=== PATIENT | male | born 1935 | race Caucasian/White ===

== ENCOUNTER 2022-03-01 10:59 | Emergency (ER) | payer MEDICARE, BC, SELFPAY ==
[2022-03-01 11:14] VITALS: BP 123/69; PULSE 66; RESP 14; TEMP 36.6; O2SAT 96; BMI 27.2
--- NOTE | 2022-03-01 12:47 | CT_ITS ---
WS: [id number] CT ABDOMEN AND PELVIS NONCONTRAST HISTORY: Abdominal pain TECHNIQUE: Imaging performed through the abdomen and pelvis. Coronal and sagittal reformats are submi tted. All CT scans at [facility] use at least one of these dose optimization techniques: auto mated exposure control; mA and/or kV adjustment per patient size (includes targeted exams where dose is matched to clinical indication); or iterative reconstruction. DLP: 2471.7 mGy.cm COMPARISON: None available. Lower thorax: Motion artifact at the lung bases. Liver: Normal size liver. No mass or bile duct dilatation. Gallbladder: Normally distended gallbladder with multiple stones. No evidence for acute cholecystitis or bile duct dilatation. Pancreas: Normal size and attenuation. Normal pancreatic duct. No pancreatitis or mass. Spleen: Normal spleen with granulomata. Adrenal glands: Normal. No mass. Right kidney: Mild atrophy and perinephric stranding with no obstruction. Nonobstructing 4 mm calcifi cation. Left kidney: Cortical calcification upper pole. Mild atrophy and perinephric stranding. No obstructio n. Aorta: Ectatic aorta with heavy calcification. 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 No free fluid, intraperitoneal air or significant lymphadenopathy. GI tract: Normally distended stomach. No small bowel obstruction. The appendix is normal. Patient has a large RIGHT inguinal hernia. There is omental fat, colon and small bowel extending into the hernia . The hernia sac is greater than 10 cm in length. There is some twisting of the fatty mesentery withi n the hernia sac. No obstruction. Patient is at risk for developing an obstruction. Numerous divertic venice throughout the distal colon predominantly. No evidence for acute diverticulitis. Abdominal wall: Ventral abdominal wall is negative. Pelvis: No free fluid in the pelvis. Urinary bladder is well distended. There is mild deviation of th e urinary bladder to the LEFT of midline due to the large RIGHT inguinal hernia. Osseous structures: Increase in the lumbar lordosis. CT/CT abdomen pelvis wo con [id number] IMPRESSION: 1. Very large RIGHT inguinal hernia. Hernia contains omental fat with proximal colon and small bowel extending into the sac with mild twisting. No obstructio n at this time. 2. Extensive diverticulosis greatest throughout the distal colon without evide nce for acute diverticulitis. 3. Cholelithiasis. 4. Moderate atherosclerosis aorta.
--- NOTE | 2022-03-01 13:11 | ED_ITS ---
HPI - GI Bleed General: Chief complaint: GI Bleed Stated complaint: bloody stool/diarrhea Time Seen by Provider: 03/01/22 12:47 Source: patient Mode of arrival: ambulatory Limitations: no limitations History of Present Illness: 86-year-old male presents emergency room with complaint of several episodes of bloody diarrhea yesterday no fever sweats chills he denies abdominal pain or chest pain he is not on any anticoagulants but does take aspirin daily he has not previously had episodes like this and has never had a colonoscopy has not had any further hematochezia today. No vomiting no diarrhea no fever sweats or chills denies dysuria urgency frequency or hematuria complaint: gross hematochezia Onset (ago): day(s) (1) Severity: mild Relieving factors: none Exacerbating factors: none Associated symptoms: Denies abdominal pain, chills, easy bruising, epistaxis, fever(s), headache(s), malaise, nausea, other bleeding, poor appetite, rash, syncope, vomiting or weakness Treatments Prior to Arrival: none Review of Systems Const: Denies: fever(s), chills, fatigue or malaise ENMT: Denies: epistaxis Card: Denies: syncope Resp: Denies: dyspnea, productive cough or non-productive cough GI: Denies: abdominal pain, nausea or vomiting : Denies: flank pain, difficulty urinating, dysuria, urinary frequency, urinary urgency or hematuria Musc: Denies: neck pain or back pain Skin/Breast: Denies: rash or pruritus Neuro: Denies: headache(s) Adrian/Lymph: Denies: easy bruising PFS ED PFSH: Medical History (Updated 03/01/22 @ 15:32 by Wm Morse DO) Hypertension Inguinal hernia Social History Smoking and tobacco status: never smoked Physical Exam Const: GENERAL APPEARANCE: cooperative and comfortable ORIENTATION/CONSCIOUSNESS: Yes awake, Yes oriented to person, Yes oriented to place and Yes oriented to time HENMT: COMMON NORMALS: normocephalic and atraumatic HEAD & SCALP: normocephalic and atraumatic Neck/C-Spine: COMMON NORMALS: no JVD Resp: COMMON NORMALS: normal respiratory effort, No retractions, No use of accessory muscles and clear to auscultation bilaterally AUSCULTATION: clear to auscultation bilaterally Cardio: COMMON NORMALS: no JVD, regular rate, regular rhythm and No murmurs present (Cardio) RATE: regular rate RHYTHM: regular rhythm GI: COMMON NORMALS: Soft to palpation and No hepatosplenomegaly present AUSCULTATION: Yes normoactive bowel sounds PALPATION: Yes Soft to palpation, No Tenderness to palpation present (GI), No Guarding due to palpation present (GI) and Yes No hepatosplenomegaly present Extremity: COMMON NORMALS: normal to inspection, capillary refill normal, no clubbing, cyanosis or edema, no calf tenderness and no pedal edema Neuro: SENSORIUM/ORIENTATION: Yes oriented to person, Yes oriented to place and Yes oriented to time Skin: COMMON NORMALS: no rashes or lesions noted GENERAL SKIN EXAM: no rashes or lesions noted Course Vital Signs: Vital signs: Vital Signs Temperature 97.8 F 03/01/22 11:14 Pulse Rate 57 L 03/01/22 13:20 Respiratory Rate 33 H 03/01/22 13:20 Blood Pressure 103/75 03/01/22 13:20 Pulse Oximetry 97 03/01/22 13:20 MDM - GI Bleed Medical Decision Making Large inguinal hernia with bowel incarcerated but is not strangulated on exam consistent with is not reducible. Strongly recommend he proceed with surgery and concern at this become strangulated could potentially become life- threatening at his age. For now his hemoglobin is stable I think we can discharge the patient with Cipro and Flagyl we will have him stop the Zithromax for now. The Cipro should cover respiratory concerns. Follow-up with general surgery for evaluation of the hernia as well as the rectal bleeding. Medical Records I reviewed the patient's medical records. Lab Data I reviewed the patient's lab results. : 03/01/22 13:20 03/01/22 13:20 Radiology Impressions Abdomen/Pelvis CT 03/01/22 12:47 IMPRESSION: 1. Very large RIGHT inguinal hernia. Hernia contains omental fat with proximal colon and small bowel extending into the sac with mild twisting. No obstruction at this time. 2. Extensive diverticulosis greatest throughout the distal colon without evidence for acute diverticulitis. 3. Cholelithiasis. 4. Moderate atherosclerosis aorta. Laboratory Results WBC 5.4 10^3/uL (4.0-10.0) 03/01/22 13:20 RBC 3.73 10^6/uL (4.1-5.3) L 03/01/22 13:20 Hgb 11.9 g/dL (11.7-16.6) 03/01/22 13:20 Hct 34.7 % (42.0-52.0) L 03/01/22 13:20 MCV 93.0 fl (80-94) 03/01/22 13:20 MCH 31.9 pg (28.0-34.0) 03/01/22 13:20 MCHC 34.3 g/dL (30.0-36.0) 03/01/22 13:20 RDW 12.6 % (12.1-15.1) 03/01/22 13:20 Plt Count 132 10^3/cmm (130-400) 03/01/22 13:20 MPV 11.2 fL (7.4-10.4) H 03/01/22 13:20 Neut % (Auto) 57.5 % 03/01/22 13:20 Lymph % (Auto) 23.3 % 03/01/22 13:20 [place] % (Auto) 16.0 % 03/01/22 13:20 Eos % (Auto) 1.9 % 03/01/22 13:20 Baso % (Auto) 0.4 % 03/01/22 13:20 Neut # (Auto) 3.09 10^3/uL (1.8-7.7) 03/01/22 13:20 Lymph # (Auto) 1.3 10^3/uL (0.8-4.8) 03/01/22 13:20 [place] # (Auto) 0.9 10^3/uL (0.2-0.9) 03/01/22 13:20 Eos # (Auto) 0.1 10^3/uL (0.0-0.8) 03/01/22 13:20 Baso # (Auto) 0.0 10^3/uL (0.0-0.1) 03/01/22 13:20 Nucleated RBC % (auto) 0 % 03/01/22 13:20 Nucleated RBCs # 0.0 /100WBC 03/01/22 13:20 PT 14.50 SECONDS (12.1-14.9) 03/01/22 13:20 INR 1.10 (0.8-1.2) 03/01/22 13:20 APTT 50.6 SECONDS (23.9-36.7) H 03/01/22 13:20 Sodium 137 mmol/L (136-145) 03/01/22 13:20 Potassium 4.4 mmol/L (3.5-5.1) 03/01/22 13:20 Chloride 102 mmol/L (98-107) 03/01/22 13:20 Carbon Dioxide 24 mmol/L (22-29) 03/01/22 13:20 Anion Gap 15.4 (5-19) 03/01/22 13:20 BUN 39 mg/dL (8-23) H 03/01/22 13:20 Creatinine 1.7 mg/dL (0.7-1.2) H 03/01/22 13:20 GFR Calculation Not Reportable 03/01/22 13:20 Glucose 95 mg/dL (65-115) 03/01/22 13:20 Calculated Osmolality 293 mOsm/kg (285-295) 03/01/22 13:20 Calcium 8.7 mg/dL (8.5-10.5) 03/01/22 13:20 Total Bilirubin 0.5 mg/dL (0.15-1.2) 03/01/22 13:20 AST 25 U/L (0-40) 03/01/22 13:20 ALT 15 U/L (0-41) 03/01/22 13:20 Alkaline Phosphatase 84 IU/L (40-130) 03/01/22 13:20 Total Protein 7.1 g/dL (6.6-8.7) 03/01/22 13:20 Albumin 4.0 g/dL (3.5-5.2) 03/01/22 13:20 Globulin 3.1 g/dL (1.3-4.6) 03/01/22 13:20 Discharge Plan Discharge Patient Disposition: Home Clinical Impression: Diverticulitis, Inguinal hernia Condition: Stable Prescriptions: New ciprofloxacin HCl 500 mg tablet 500 mg PO BID Qty: 20 0RF metronidazole 500 mg tablet 500 mg PO BID 10 Days Qty: 20 0RF No Action simvastatin 20 mg tablet 20 mg PO DAILY 0RF lisinopril-hydrochlorothiazide 20-12.5 mg tablet 1 tab PO DAILY 0RF azithromycin [Zithromax] 500 mg tablet 500 mg PO DAILY 5 Days Qty: 3 0RF ondansetron 8 mg tablet,disintegrating 8 mg PO Q8H PRN (Reason: nausea and vomiting) 4 Days Qty: 15 0RF multivitamin Tablet 1 tab PO DAILY 0RF cetirizine 10 mg Tablet 10 mg PO DAILY 0RF aspirin 81 mg Tablet,Chewable 81 mg PO DAILY 0RF Discharge Orders: Discharge ED (Routine); Ordered 03/01/22 Ordered By: Wm Morse Referrals: Emir Powers, [Primary Care Provider] - Discharge Diet: Usual diet Discharge Activity: Limit activity as instructed Patient Instructions: Opioid Safety Activity Restrictions/Additional Instructions: No heavy lifting. Full liquid diet for the next 3 days then advance as tolerated. Case management will make arrangements for you to follow-up with one of the surgeons. Coding Level of Care Code ED Mail Processing Equipment Mechanic for Lc Sharma Exam Comprehensive
[2022-03-01 13:20] VITALS: BP 103/75; PULSE 57; RESP 33; O2SAT 97
[2022-03-01 13:57] LABS: Basophils % 0.4 %; Eosinophils # 0.1 10^3/uL (0.0-0.8); Eosinophils % 1.9 %; Hematocrit 34.7 % (42.0-52.0); Hemoglobin 11.9 g/dL (11.7-16.6); Lymphocytes # 1.3 10^3/uL (0.8-4.8); Lymphocytes % 23.3 %; Mean Corpuscular HGB Conc 34.3 g/dL (30.0-36.0); Mean Corpuscular Hemoglobin 31.9 pg (28.0-34.0); Mean Platelet Volume 11.2 fL (7.4-10.4); Monocytes # 0.9 10^3/uL (0.2-0.9); Neutrophils # 3.09 10^3/uL (1.8-7.7); Neutrophils % 57.5 %; Nucleated Red Blood Cells % 0 %; Platelet Count 132 10^3/cmm (130-400); Red Blood Count 3.73 10^6/uL (4.1-5.3); Red Cell Distribution Width 12.6 % (12.1-15.1); White Blood Count 5.4 10^3/uL (4.0-10.0)
[2022-03-01 14:17] LABS: Partial Thromboplastin Time 50.6 SECONDS (23.9-36.7)
[2022-03-01 14:23] LABS: Alanine Aminotransferase 15 U/L (0-41); Alkaline Phosphatase 84 IU/L (40-130); Anion Gap 15.4 (5-19); Aspartate Amino Transferase 25 U/L (0-40); Blood Urea Nitrogen 39 mg/dL (8-23); Calcium 8.7 mg/dL (8.5-10.5); Carbon Dioxide 24 mmol/L (22-29); Chloride 102 mmol/L (98-107); Globulin 3.1 g/dL (1.3-4.6); Glucose 95 mg/dL (65-115); Osmolality Calculated 293 mOsm/kg (285-295); Potassium 4.4 mmol/L (3.5-5.1); Sodium 137 mmol/L (136-145); Total Bilirubin 0.5 mg/dL (0.15-1.2); Total Protein 7.1 g/dL (6.6-8.7)
== END 2022-03-01 15:13 | disposition home or self-care (01) ==
PROVIDERS: Emergency Provider Family Medicine; PCP Family Medicine
DX: K57.93 Diverticulitis of intestine, part unspecified, without perforation or abscess with bleeding (principal); K40.90 Unilateral inguinal hernia, without obstruction or gangrene, not specified as recurrent; I10 Essential (primary) hypertension; Z79.82 Long term (current) use of aspirin
CPT/HCPCS: 74176; 80053; 85025; 85610; 85730; 99283

== ENCOUNTER 2022-11-04 00:23 | Emergency (ER) | payer MEDICARE, BC, SELFPAY ==
[2022-11-04 00:31] VITALS: BP 160/80; PULSE 60; RESP 18; TEMP 36.6; O2SAT 96; BMI 27.2
--- NOTE | 2022-11-04 00:53 | ECG_ITS ---
[facility] Test Date: 2022-11-04 Pat Name: Joann Borges Department: Room: Gender: Male Motion Picture Set Worker: : 1935 Requested By: Edmundo Hill Order Number: [id number] Melo MD: Dolores Howard M.D. Measurements Intervals [place] Rate: 54 P: 74 [place]: 197 QRS: 26 QRSD: 85 T: 42 QT: 412 QTc: 393 Interpretive Statements SINUS BRADYCARDIA Compared to ECG 08/03/2021 17:48:10 Sinus rhythm no longer present Myocardial infarct finding no longer present Electronically Signed On 11-04-2022 19:30:49 COMMUNICATIONS ELECTRICIAN SUPERVISOR by Dolores Howard M.D. [email or web address] [id number]
--- NOTE | 2022-11-04 00:53 | CTR_ITS ---
PROCEDURE INFORMATION: Exam: CT Abdomen And Pelvis With Contrast Exam date and time: 11/04/2022 1:57 AM Age: 87 years old Clinical indication: Abdominal pain; Localized; Right lower quadrant (rlq); Additional info: Abd pain TECHNIQUE: Imaging protocol: Computed tomography of the abdomen and pelvis with contrast. Radiation optimization: All CT scans at this facility use at least one of these dose optimization techniques: automated exposure control; mA and/or kV adjustment per patient size (includes targeted exams where dose is matched to clinical indication); or iterative reconstruction. Contrast material: OMNI 350; Contrast volume: 70 ml; Contrast route: INTRAVENOUS (IV); Other protocol: This patient has received [address] and 0 known cardiac nuclear medicine studies in the 12 months prior to the current study. COMPARISON: CT abdomen pelvis wo con [id number] 03/01/2022 1:41 PM RADIATION DOSE METRICS: Total DLP (mGy-cm): 1137.12 FINDINGS: Diaphragm: There is a small hiatal hernia present. Liver: Normal. No mass. Gallbladder and bile ducts: There multiple small gallstones present. Pancreas: Normal. No ductal dilation. Spleen: Punctate calcifications are seen in the spleen compatible calcified granulomas. Adrenal glands: Normal. No mass. Kidneys and ureters: There is a 1.7 mm nonobstructing calculus seen in the upper pole of the left kidney. Stomach and bowel: Diverticula are seen scattered on the colon. There is some bowel wall thickening seen within the proximal sigmoid colon, finding that could represent mild chronic diverticulitis. Appendix: No evidence of appendicitis. Intraperitoneal space: Unremarkable. No free air. No significant fluid collection. Vasculature: Unremarkable. No abdominal aortic aneurysm. Lymph nodes: Unremarkable. No enlarged lymph nodes. Urinary bladder: Unremarkable as visualized. Reproductive: Unremarkable as visualized. Bones/joints: Unremarkable. No acute fracture. Soft tissues: Strandy opacities are seen in the perinephric fascia bilaterally compatible with chronic scarring. There is a prominent right inguinal hernia that extends into the scrotal sac containing the cecum and loops of nonobstructed and non incarcerated small bowel. This finding is essentially unchanged from 03/01/2022. There is a small left inguinal hernia present containing fat. CT/CT abdomen pelvis w con* [id number] IMPRESSION: 1. There is a large right inguinal hernia again seen containing the cecum and loops of nonobstructed and non incarcerated small bowel. This finding is essentially unchanged from 03/01/2022. 2. There is a small left inguinal hernia present containing fat. 3. Diverticulosis. Mild bowel wall thickening is seen within the proximal sigmoid colon, finding that could represent mild chronic diverticulitis. 4. Multiple small gallstones 5. Small hiatal hernia
--- NOTE | 2022-11-04 00:53 | W.ED.BACK ---
HPI - Back Pain/Injury General: Chief Complaint: Back Pain/Injury Stated Complaint: back and abdomen pain, hernia Time Seen by Provider: 11/04/22 00:49 Source: patient Mode of arrival: ambulatory Limitations: no limitations History of Present Illness: 87-year-old male states been having some left back and flank pain over the day. He states is a sharp pain he rates it a 6 out of 10 he has had no vomiting or diarrhea but has had some nausea denies chest pain denies fever. He does have a left inguinal hernia states has been there chronically. Associated symptoms: Deny abdominal pain, chills, dysuria, fever(s), nausea or vomiting Review of Systems Const: Denies: fever(s), chills, body aches or change in appetite Eyes: Denies: blurry vision or eye discomfort ENMT: Denies: throat pain or dental pain Card: Denies: chest pain Resp: Denies: dyspnea GI: Denies: abdominal pain, nausea, vomiting or diarrhea : Denies: dysuria Musc: Reports: back pain Skin/Breast: Denies: rash Neuro: Denies: headache(s) Psych: Denies: depression Adrian/Lymph: Denies: easy bruising All/Imm: Denies: urticaria PFSH ED PFSH: Medical History Hypertension Inguinal hernia Social History Smoking and tobacco status: never smoked Physical Exam Const: COMMON NORMALS: no acute distress, patient oriented x3 and healthy appearing HENMT: COMMON NORMALS: normocephalic and atraumatic HEAD & SCALP: normocephalic and atraumatic Eye: COMMON NORMALS: Equal, round and reactive pupils present and EOMs intact bilaterally PUPIL: Yes Equal, round and reactive pupils present Neck/C-Spine: COMMON NORMALS: full ROM and supple Chest: COMMONS NORMALS: normal inspection of the chest and normal palpation of entire chest wall Resp: COMMON NORMALS: normal respiratory effort, No retractions, No use of accessory muscles and clear to auscultation bilaterally AUSCULTATION: clear to auscultation bilaterally Cardio: COMMON NORMALS: regular rate, regular rhythm and No murmurs present (Cardio) RATE: regular rate RHYTHM: regular rhythm GI: COMMON NORMALS: Normal to inspection, nondistended, normoactive bowel sounds present, Soft to palpation and non-tender PALPATION: Yes Soft to palpation OTHER: Large left inguinal hernia Extremity: COMMON NORMALS: normal to inspection and full ROM Neuro: COMMON NORMALS: patient oriented x3, moves all extremities and no focal motor deficits Psych: COMMON NORMALS: mental status grossly normal, Normal thought process present and cooperative THOUGHT PROCESS: Normal thought process present Skin: COMMON NORMALS: no rashes or lesions noted and no wounds GENERAL SKIN EXAM: no rashes or lesions noted Course Vital Signs: Vital signs: Vital Signs Temperature 97.9 F 11/04/22 00:31 Pulse Rate 57 L 11/04/22 01:19 Respiratory Rate 16 11/04/22 01:20 Blood Pressure 133/74 11/04/22 01:30 Pulse Oximetry 100 11/04/22 01:30 Oxygen Delivery Me thod 11/04/22 00:31 MDM - Back Pain/Injury Medical Decision Making Patient presents here with abdominal and back pain he does have a very large hernia but is not incarcerated CT shows no acute findings his pain is much improved here he has normal white count no signs of infection or surgical abdomen he is stable for discharge he is to follow-up with surgery return if worsening. Labs 11/04/22 01:10 11/04/22 01:10 Radiology Impressions Abdomen/Pelvis CT 11/04/22 00:53 IMPRESSION: 1. There is a large right inguinal hernia again seen containing the cecum and loops of nonobstructed and non incarcerated small bowel. This finding is essentially unchanged from 03/01/2022. 2. There is a small left inguinal hernia present containing fat. 3. Diverticulosis. Mild bowel wall thickening is seen within the proximal sigmoid colon, finding that could represent mild chronic diverticulitis. 4. Multiple small gallstones 5. Small hiatal hernia Laboratory Results WBC 7.0 10^3/uL (4.0-10.0) 11/04/22 01:10 RBC 3.72 10^6/uL (4.1-5.3) L 11/04/22 01:10 Hgb 11.8 g/dL (11.7-16.6) 11/04/22 01:10 Hct 36.1 % (42.0-52.0) L 11/04/22 01:10 MCV 97.0 fl (80-94) H 11/04/22 01:10 MCH 31.7 pg (28.0-34.0) 11/04/22 01:10 MCHC 32.7 g/dL (30.0-36.0) 11/04/22 01:10 RDW 12.5 % (12.1-15.1) 11/04/22 01:10 Plt Count 130 10^3/cmm (130-400) 11/04/22 01:10 MPV 9.5 fL (7.4-10.4) 11/04/22 01:10 Neut % (Auto) 71.9 % 11/04/22 01:10 Lymph % (Auto) 16.0 % 11/04/22 01:10 [place] % (Auto) 7.8 % 11/04/22 01:10 Eos % (Auto) 3.4 % 11/04/22 01:10 Baso % (Auto) 0.6 % 11/04/22 01:10 Neut # (Auto) 5.05 10^3/uL (1.8-7.7) 11/04/22 01:10 Lymph # (Auto) 1.1 10^3/uL (0.8-4.8) 11/04/22 01:10 [place] # (Auto) 0.6 10^3/uL (0.2-0.9) 11/04/22 01:10 Eos # (Auto) 0.2 10^3/uL (0.0-0.8) 11/04/22 01:10 Baso # (Auto) 0.0 10^3/uL (0.0-0.1) 11/04/22 01:10 Nucleated RBC % (auto) 0 % 11/04/22 01:10 Nucleated RBCs # 0.0 /100WBC 11/04/22 01:10 Sodium 137 mmol/L (136-145) 11/04/22 01:10 Potassium 4.5 mmol/L (3.5-5.1) 11/04/22 01:10 Chloride 101 mmol/L (98-107) 11/04/22 01:10 Carbon Dioxide 25 mmol/L (22-29) 11/04/22 01:10 Anion Gap 15.5 (5-19) 11/04/22 01:10 BUN 28 mg/dL (8-23) H 11/04/22 01:10 Creatinine 1.4 mg/dL (0.7-1.2) H 11/04/22 01:10 GFR Calculation Not Reportable 11/04/22 01:10 Glucose 178 mg/dL (65-115) H 11/04/22 01:10 Calculated Osmolality 294 mOsm/kg (285-295) 11/04/22 01:10 Calcium 9.3 mg/dL (8.5-10.5) 11/04/22 01:10 Total Bilirubin 0.3 mg/dL (0.15-1.2) 11/04/22 01:10 AST 22 U/L (0-40) 11/04/22 01:10 ALT 15 U/L (0-41) 11/04/22 01:10 Alkaline Phosphatase 69 U/L (40-130) 11/04/22 01:10 Total Protein 6.9 g/dL (6.6-8.7) 11/04/22 01:10 Albumin 4.2 g/dL (3.5-5.2) 11/04/22 01:10 Globulin 2.7 g/dL (1.3-4.6) 11/04/22 01:10 Lipase 35 U/L (13-60) 11/04/22 01:10 Urine Color Yellow (Yellow) 11/04/22 01:41 Urine Appearance Clear (CLEAR) 11/04/22 01:41 Urine pH 5 (5-7) 11/04/22 01:41 Ur Specific [place] 1.020 (1.005-1.030) 11/04/22 01:41 Urine Protein Neg (Negative) 11/04/22 01:41 Urine Glucose (UA) Norm (Normal) 11/04/22 01:41 Urine Ketones Negative (Negative) 11/04/22 01:41 Urine Blood Neg (Negative) 11/04/22 01:41 Urine Nitrate Negative (Negative) 11/04/22 01:41 Urine Bilirubin Neg (Negative) 11/04/22 01:41 Urine Urobilinogen Neg mg/dL (Negative) 11/04/22 01:41 Ur Leukocyte Esterase Negative (Negative) 11/04/22 01:41 Discharge Plan Discharge Patient Disposition: Home Clinical Impression: Abdominal pain, Hernia Condition: Stable Prescriptions: New hydrocodone-acetaminophen 5-325 mg tablet 1 tab PO Q6H PRN (Reason: pain) Qty: 14 0RF ondansetron 4 mg tablet,disintegrating 4 mg PO Q6H PRN (Reason: nausea and vomiting) Qty: 14 0RF No Action simvastatin 20 mg tablet 20 mg PO DAILY lisinopril-hydrochlorothiazide 20-12.5 mg tablet 1 tab PO DAILY azithromycin [Zithromax] 500 mg tablet 500 mg PO DAILY 5 Days Qty: 3 0RF ondansetron 8 mg tablet,disintegrating 8 mg PO Q8H PRN (Reason: nausea and vomiting) 4 Days Qty: 15 0RF multivitamin Tablet 1 tab PO DAILY cetirizine 10 mg Tablet 10 mg PO DAILY aspirin 81 mg Tablet,Chewable 81 mg PO DAILY ciprofloxacin HCl 500 mg tablet 500 mg PO BID Qty: 20 0RF Discharge Orders: Discharge ED (Routine); Ordered 11/04/22 Ordered By: Edmundo Hill Referrals: Emir Powers DO [Primary Care Provider] - Frankie Franco DO [Physician] - 1-3 days Discharge Activity: Resume usual activity Patient Instructions: Inguinal Hernia (ED), Abdominal Pain (ED), Opioid Safety Coding Level of Care Code ED Irrigation Equipment Mechanic for Lc Sharma
[2022-11-04 01:17] LABS: Basophils % 0.6 %; Eosinophils # 0.2 10^3/uL (0.0-0.8); Eosinophils % 3.4 %; Hematocrit 36.1 % (42.0-52.0); Hemoglobin 11.8 g/dL (11.7-16.6); Lymphocytes # 1.1 10^3/uL (0.8-4.8); Mean Corpuscular HGB Conc 32.7 g/dL (30.0-36.0); Mean Corpuscular Hemoglobin 31.7 pg (28.0-34.0); Mean Platelet Volume 9.5 fL (7.4-10.4); Monocytes # 0.6 10^3/uL (0.2-0.9); Monocytes % 7.8 %; Neutrophils # 5.05 10^3/uL (1.8-7.7); Neutrophils % 71.9 %; Nucleated Red Blood Cells % 0 %; Platelet Count 130 10^3/cmm (130-400); Red Blood Count 3.72 10^6/uL (4.1-5.3); Red Cell Distribution Width 12.5 % (12.1-15.1)
[2022-11-04 01:19] VITALS: BP 133/74; PULSE 57; RESP 16; O2SAT 96
[2022-11-04 01:20] VITALS: RESP 16
[2022-11-04] MEDS: morphine 4 mg/mL SDV 1 mL IVP (01:20)
[2022-11-04] MEDS: sodium chloride 0.9% 1,000 ML 999 ML IV (01:21)
[2022-11-04] MEDS: ondansetron 2 mg/ML SDV 2 mL 4 MG IVP (01:21)
[2022-11-04 01:30] VITALS: BP 133/74; O2SAT 100
[2022-11-04] MEDS: LORazepam 2 mg/mL INJ 1 mL 1 MG IVP (01:30)
[2022-11-04 01:35] LABS: Alanine Aminotransferase 15 U/L (0-41); Albumin Level 4.2 g/dL (3.5-5.2); Alkaline Phosphatase 69 U/L (40-130); Anion Gap 15.5 (5-19); Aspartate Amino Transferase 22 U/L (0-40); Blood Urea Nitrogen 28 mg/dL (8-23); Calcium 9.3 mg/dL (8.5-10.5); Carbon Dioxide 25 mmol/L (22-29); Chloride 101 mmol/L (98-107); Globulin 2.7 g/dL (1.3-4.6); Glucose 178 mg/dL (65-115); Lipase 35 U/L (13-60); Osmolality Calculated 294 mOsm/kg (285-295); Potassium 4.5 mmol/L (3.5-5.1); Sodium 137 mmol/L (136-145); Total Bilirubin 0.3 mg/dL (0.15-1.2); Total Protein 6.9 g/dL (6.6-8.7)
[2022-11-04 01:48] LABS: Add Urine Microscopic? NO; Charge for UA Resulting for Rev
[2022-11-04] MEDS: iohexol 350 mg/mL 500 mL Btl (per mL) IV (01:48)
[2022-11-04 01:50] LABS: Bilirubin Urine Neg (Negative); Blood Urine Neg (Negative); Glucose Urine UA Norm (Normal); Ketones Urine Negative (Negative); Leukocyte Esterase Urine Negative (Negative); Nitrate Urine Negative (Negative); Protein Urine Neg (Negative); Urine Appearance Clear (CLEAR); Urine Color Yellow (Yellow); Urobilinogen Urine Neg (Negative); pH Urine 5 (5-7)
[2022-11-04 02:30] VITALS: BP 138/79; PULSE 61; RESP 18; O2SAT 100
[2022-11-04] MEDS: HYDROmorphone 1 mg/mL INJ 1 mL 0.5 MG IVP (02:36)
[2022-11-04] MEDS: HYDROcodone-acetaminophen 5-325 mg Tablet 1 TAB PO (03:02)
[2022-11-04 03:14] VITALS: BP 124/61; PULSE 60; RESP 18; O2SAT 100
--- NOTE | 2022-11-06 11:20 | DCPLANNER ---
Addendum entered by Evita Swartz 11/08/22 15:03: financial risk manager received the following message from the front office staff at general surgery regarding follow up appointment: Patient prefers to wait and will call us when he is ready to scehdule Original Note: financial risk manager had message to schedule a follow up appointment for patient with general surgery. financial risk manager sent patients information to the front office staff at general surgery. Patients information will be printed and reviewed. Clinic will call patient with appointment information.
== END 2022-11-04 03:15 | disposition home or self-care (01) ==
PROVIDERS: Emergency Provider Emergency Medicine; PCP Family Medicine
DX: K40.20 Bilateral inguinal hernia, without obstruction or gangrene, not specified as recurrent (principal); K57.90 Diverticulosis of intestine, part unspecified, without perforation or abscess without bleeding; K80.20 Calculus of gallbladder without cholecystitis without obstruction; K44.9 Diaphragmatic hernia without obstruction or gangrene; Z79.82 Long term (current) use of aspirin; I10 Essential (primary) hypertension
CPT/HCPCS: 74177; 80053; 81003; 83690; 85025; 93005; 96374; 96375; 99285; J1170; J2060; J2270; J2405; J7030; Q9967

== ENCOUNTER → 2023-05-03 09:49 | Outpatient (BNVA) | payer MEDICARE, BC, SELFPAY | PROVIDERS: PCP Family Medicine; Visit Provider Podiatrist Foot & Ankle Surgery | DX: L60.1 Onycholysis | CPT/HCPCS: 99203 ==